=== PATIENT | female | born 1995 | race Caucasian/White ===

== ENCOUNTER 2018-06-22 14:03 | Emergency (ER) | payer SELFPAY ==
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
[2018-06-22] MEDS ORDERED: Acetaminophen 500 MG TAB ONE (16:20)
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
== END 2018-06-22 16:31 | disposition home or self-care (01) ==
LOC: ERS 14:03
DX: R07.89 Other chest pain (principal); M25.511 Pain in right shoulder; M79.604 Pain in right leg; V43.52XA Car driver injured in collision with other type car in traffic accident, initial encounter
CPT/HCPCS: 71046